=== PATIENT | female | born 1985 | race American Indian/Alaskan Native ===

== ENCOUNTER 2017-08-29 12:06 | Emergency (ER) | payer OTHER ==
[2017-08-29 12:12] VITALS: BP 140/91
== END 2017-08-29 15:55 | disposition left against medical advice (07) ==
LOC: ED 12:06
DX: R51 Headache (principal); M54.2 Cervicalgia; M25.512 Pain in left shoulder; Z53.21 Procedure and treatment not carried out due to patient leaving prior to being seen by health care provider
CPT/HCPCS: 93005; 93010